=== PATIENT | female | born 1975 | race African-American/Black ===

== ENCOUNTER → 2018-02-11 18:44 | Observation (INO) ==
[2018-02-11 17:21] LABS: Bilirubin,Urine Negative (Negative); Blood,Urine Negative (Negative); Clarity,Urine Cloudy (Clear); Color,Urine Yellow (Yellow); Glucose,Urine (UA) 500 mg/dL (Normal); Ketones,Urine Negative (Negative); Leukocyte Esterase,Urine Negative (Negative); Nitrite,Urine Negative (Negative); Protein,Urine 30 mg/dL (Neg-Trace); Specific Gravity,Urine 1.027 (1.010-1.025); Urobilinogen,Urine Normal (Normal)
[2018-02-11 17:22] LABS: Bacteria,Urine Moderate per hpf (None-Few); Hyaline Casts,Urine None Seen per lpf (None-Few); Squamous Epithelial Cell,Urine Many per lpf (None-Few)
[2018-02-11 17:33] LABS: Uric Acid Crystals,Urine Present
[2018-02-11 17:48] LABS: Amphetamine Screen,Urine Negative ng/mL (Cutoff=1000); Barbiturate Screen,Urine Negative ng/mL (Cutoff=200); Benzodiazepines Screen,Urine Negative ng/mL (Cutoff=200); Cannabinoid Screen,Urine Negative ng/mL (Cutoff = 50); Cocaine Screen,Urine Negative ng/mL (Cutoff= 300); Opiate Screen,Urine Negative ng/mL (Cutoff=300); Phencyclidine Screen,Urine Negative ng/mL (Cutoff=25)
--- NOTE | 2018-02-11 18:41 | OB/GYN Progress Note ---
Date of Encounter: 02/11/18 Time of Encounter: 18:39 - Assessment and Plan (1) 33 weeks gestation of Current Visit: Yes Status: Acute (2) Fall Current Visit: Yes Status: Acute No abdominal pain or discomfort. Reactive tracing. Okay to discharge home [address] Craig. Qualifiers: Encounter type: initial encounter Qualified Code(s): W19.XXXA - Unspecified fall, initial encounter (3) Class B gestational diabetes mellitus (GDM) Current Visit: Yes Status: Chronic Discussed with patient concerns over running out of insulin and MD cancelling appointment. Asked patient if she could get to [facility] appointment we could get her an appointment and pt states "you can't do that they have tried", pt combative when discussing ability to get to earlier appointment if it could be made. Reviewed records and it looks like sent in 3 refills on 12/21 rx. Pt states pharmacy has no record of this rx ever being sent and therefore I would not be able to fill it. Discussed with Dr. Craig I sent in one month refill of Novolin and Novolog to [facility] pharmacy based on Dr. Quiroz 12/21 note dosing, this way patient will not run out over the weekend. I told patient I was sending in her rx and she said that she was unhappy with the management of her insulin and she was going to have her SO take her to [facility] for management. Discussed with patient I was sending her in a refill, but this only upset her and she insisted on leaving. Told patient the refill would be at her pharmacy for her to picket labor union. Medication sent via telephone encounter to [facility] in [place]. (4) Decreased movement during in third trimester, antepartum Current Visit: Yes Status: Resolved NST reactive. Qualifiers: Fetus number: single or unspecified fetus Qualified Code(s): O36.8130 - Decreased movements, third trimester, not applicable or unspecified Subjective - Subjective Interval history: 33+0 weeks presents to triage following reported fall at 1415. Pt states she was standing up and felt dizzy and fell. Pt is known diabetic on insulin. Pt states her glucose was 198 at noon, but did not check after fall. Pt states fell and hit side of abdomen. Pt denies contractions, vaginal bleeding or leaking of fluid. Pt states she has not felt baby move since NST in MD office today, but has anterior placenta and does not feel him move at times. Denies abdominal pain or discomfort. Pt states she is very concerned over insulin and that the kiosk sales representative cancelled her appointment and she will be out of insulin by Wednesday. Antepartum ROS: no loss of fluid, no vaginal bleeding, no movement normal , no contractions Objective - Vital Signs Vital Signs: Intake and Output 02/11/18 02/11/18 02/11/18 07:59 15:59 23:59 Other: Weight 155.129 kg Patient Weight 02/11/18 23:59 Weight 155.129 kg - Exam FHR: auscultation normal FHR comments: Baseline 135 Abdomen: Present: soft (no pain with palpation ), gravid - Labs Labs: Abnormal lab results Urine Clarity Cloudy (Clear) A 02/11/18 17:00 Ur Specific [place] 1.027 (1.010-1.025) H 02/11/18 17:00 Urine Protein 30 mg/dL (Neg-Trace) H 02/11/18 17:00 Urine Glucose (UA) 500 mg/dL (Normal) H 02/11/18 17:00 Urine Microscopic RBC 5-15 per hpf (0-3) H 02/11/18 17:00 Urine Microscopic WBC 5-15 per hpf (0-3) H 02/11/18 17:00 Ur Squamous Epith Cells Many per lpf (None-Few) H 02/11/18 17:00 Urine Bacteria Moderate per hpf (None-Few) H 02/11/18 17:00
== END | disposition home or self-care (01) ==
LOC: 1NENULAB
PROVIDERS: ADMIT Advanced Practice Midwife; ATTEND Advanced Practice Midwife

== ENCOUNTER 2018-03-18 06:07 | Inpatient (IN) ==
--- NOTE | 2018-03-18 06:35 | Anesthesia Evaluation PreOp ---
Date of Encounter: 03/18/18 Time of Encounter: 06:30 - Past History Planned Operation: Repeat Cardiac History: Denies any Significant Hx Pulmonary History: Denies Any Significant HX NURSE DISCHARGE History: Denies Any Significant HX Other Medical History: Diabetes Type II (Gestational on Insulin), Other (Morbid Obesity) Anesthesia History: No Prior Anesthetic Complications : Yes Alcohol Use: none Drug use: none, other Medications and Allergies Albuterol Sulfate Pack 2 puff IN Q4-6H PRN #1 units 03/21/15 [Rx] Montelukast [Singulair] 10 mg PO DAILY 12/07/15 [History] Ferrous Sulfate 325 mg PO BID 12/27/15 [History] Tablet 1 tab PO DAILY 12/27/15 [History] Pulmicort Flexhaler 180mcg 2 puff IN Q4HR 12/27/15 [History] Insulin LISPRO [Humalog] 20 unit SQ WMHS 01/15/16 [History] Insulin NPH 30 unit SQ HS 01/15/16 [History] Albuterol Sulfate 2.5 mg IH Q4H PRN #15 vial.neb 12/11/16 [Rx] Budesonide [Pulmicort Flexhaler 180mcg] 2 puff IH BID #1 aer.pow.ba 12/11/16 [Rx ] 3 Allergy/AdvReac Type Severity Reaction Status Date / Time bacitracin [From Polysporin] Allergy Rash Verified 12/11/16 06:13 polymyxin B [From Polysporin] Allergy Rash Verified 12/11/16 06:13 - Meds/Allergy Pre-op Review Medications Reviewed: Yes Allergies Reviewed: Yes Beta Blockers on Current Med List: No Anesthesia Results - Labs Laboratory Tests 12/27/15 12/24/17 03/17/18 18:47 10:04 13:30 WBC 12.4 H Hgb 12.1 Hct 37.2 Plt Count 176 PT 11.0 INR 1.0 APTT 25.7 L Sodium 135 L Potassium 3.9 BUN 10 Creatinine 0.52 L Anesthesia Exam Height: 5'11 Weight: 350 lbs NPO (# of Hours): MN Pain Scale: 0 - HEENT Pupil (Motor): Pupils equal, EOMI Mallampati: II Teeth: Normal Oral Opening: Greater than 3 - NURSE DISCHARGE LOC: Oriented NURSE DISCHARGE Motor: Normal RUE, Normal LUE, Normal RLE, Normal LLE, Normal Face NURSE DISCHARGE Sensory: Normal: RUE, LUE, RLE, LLE, Face - Cardiac Rhythm: Regular Murmur: None JVD: No Carotid Bruit: No - Pulmonary Breath Sounds: bilateral Clear Respiratory Effort: Symmetrical Anesthesia Assess/Plan ASA Score: 3 (Morbid Obesity Gestational DM) Modified [place] Scale for Level of Consciousness: Cooperative, oriented, and tranquil Anesthetic Plan: Regional Monitoring Plan: Standard Monitors Recovery Plan: PACU (Discussed SAB, possible GA, agrees to proceed)
[2018-03-18] MEDS ORDERED: Ringers Solution, Lactated 1,000 ML ONE ×2 (06:52→07:53)
[2018-03-18] MEDS ORDERED: *HR* Morphine Sulfate/PF 10 MG/10 ML AMPUL ONE (07:33)
[2018-03-18] MEDS ORDERED: *HR* FentaNYL (PF) 100 MCG/2 ML VIAL ONE (07:33)
[2018-03-18] MEDS ORDERED: Metoclopramide 10 MG/2 ML VIAL IVP ONE (07:36)
[2018-03-18] MEDS ORDERED: CeFAZolin Syr 3,000MG/30 ML 3,000 MG/30 ML SYRINGE IVPB ONE (07:36)
[2018-03-18] MEDS ORDERED: Famotidine 20 MG/2 ML VIAL IVP ONE (07:36)
[2018-03-18] MEDS ORDERED: EPHEDrine 50 MG/ML VIAL ONE (07:38)
[2018-03-18] MEDS ORDERED: Naloxone 0.4 MG/ML INJ IVP PRN ×2 (07:38→09:48)
[2018-03-18] MEDS ORDERED: Famotidine 20 MG/2 ML VIAL IVP PRN (07:38)
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
[2018-03-18] MEDS ORDERED: 0.9 % Sodium Chloride 1,000 ML IVC SCH (07:45)
[2018-03-18 07:52] LABS: Basophils % 0.2 %; Eosinophils # 0.1 K/mcL (0.0-0.6); Eosinophils % 0.8 %; Hematocrit 34.7 % (35.3-44.9); Immature Granulocytes % 0.7 % (0-4); Lymphocytes % 20.3 %; Mean Corpuscular HGB Conc 34.6 g/dL (31.6-35.5); Mean Corpuscular Hemoglobin 31.3 pg (28.0-33.3); Mean Corpuscular Volume 90.4 fL (83.0-100.0); Mean Platelet Volume 11.4 fL (9.4-12.4); Monocytes # 0.4 K/mcL (0.0-1.3); Monocytes % 4.5 %; Neutrophils # 7.3 K/mcL (1.6-8.9); Platelet Count 177 K/mcL (140-400); Red Blood Count 3.84 M/mcL (3.82-4.97); Segmented Neutrophils % 73.5 %
[2018-03-18] MEDS ORDERED: Ketorolac 30 MG/ML VIAL ONE (08:55)
[2018-03-18] MEDS ORDERED: Ondansetron 4 MG/2 ML VIAL ONE (08:55)
[2018-03-18] MEDS ORDERED: Dexamethasone 4 MG/ML VIAL ONE (08:55)
--- NOTE | 2018-03-18 09:09 | Anesthesia Procedures ---
Date of Encounter: 03/18/18 Time of Encounter: 08:27 Procedures: Anesthesia - Epidural/Spinal Patient ID/Chart reviewed: Yes Patient examined: Yes OB Eval: Gestational age: 38 OB Eval: : 6 OB Eval: Hx Para: 5 OB Eval: Contractions: Non-stressed pattern Consent Obtained: Yes Site Prep: Aseptic Technique, Sterile prep and drape, Povidone-Iodine 1% Patient position: upright Amount of Local Anesthetic used: 3 Interspace Used: L4-L5 Loss of Resistance (SHARATH): No Blood: No CSF: Yes Paresthesia: No Procedure: bupivicain 0.5% 2.3ml duramorph 0.3mg fentanyl 12mcg Vitals + FHT's: stable throughout see nursing record
[2018-03-18] MEDS ORDERED: *HR* OxyCODONE/APAP 5/325 TABLET PO PRN (09:10)
[2018-03-18] MEDS ORDERED: *HR* Promethazine 25 MG/ML VIAL IVP PRN (09:10)
[2018-03-18] MEDS ORDERED: Ondansetron 4 MG/2 ML VIAL IVP PRN ×2 (09:10→09:48)
[2018-03-18] MEDS ORDERED: *HR* Morphine 2 MG/ML SYRINGE IVP PRN (09:10)
[2018-03-18] MEDS ORDERED: *HR* Meperidine 25 MG/ML SYRINGE IVP PRN (09:10)
[2018-03-18] MEDS ORDERED: Ondansetron 4 MG/2 ML VIAL IVP ONE (09:10)
[2018-03-18] MEDS ORDERED: Acetaminophen IV 1,000 MG/100 ML INFUS..BTL IVPB ONE (09:10)
[2018-03-18] MEDS ORDERED: Rho Immune Globulin 1,500 UNIT SYRINGE IM ONE (09:48)
[2018-03-18] MEDS ORDERED: Simethicone 80 MG TAB.CHEW PO PRN (09:48)
[2018-03-18] MEDS ORDERED: Measles/Mumps/Rubella Vacc 0.5 ML VIAL SQ ONE (09:48)
[2018-03-18] MEDS ORDERED: Sennosides 8.6 MG TABLET PO PRN (09:48)
[2018-03-18] MEDS ORDERED: Metoclopramide 10 MG/2 ML VIAL IVP PRN (09:48)
--- NOTE | 2018-03-18 09:55 | OB/GYN Procedure Note ---
Section - Date of procedure: 03/18/18 Preop diagnosis: desires repeat , desires sterilization, other ( Increased BMI, poorly controlled insulin requiring diabetes) Post-op diagnosis: same Procedure: section, repeat low transverse, bilateral tubal ligation Surgeon: Oleksandr Cornell Blood Loss: 500 Was there an addictions counselor assistant present: No Anesthesia Type: Spinal section complications: none Disposition: L&D Recovery Room Specimens: Placenta - Infant (s) Infant A Delivery Date: 03/18/18 Infant Delivery Time: 08:53 Presentation: vertex Position: OA Gender: Male Viability: Viable Pounds: 8 Ounces: 3 at 1 minute: 9 at 5 minutes: 9 Shoulder Dystocia: not encountered Specimens collected: cord blood Placenta: spontaneous Cord: 3 umbilical vessels - Narrative Narrative: Patient's a 42-year-old female at 38 weeks gestation with history of prior section presents for repeat section. Patient's she has been complicated by morbid obesity, poorly controlled insulin requiring diabetes, asthma. Management has been difficult because she is not Follow-up appointments with endocrinology. Edema or [facility] diabetes clinic and her blood sugars have been poorly controlled. She oftentimes does not take her insulin or follow her diet. She did not bring her blood sugar recording taken. Because of this have discussed case with my partners in my ACCESS CLERK practice and they agree unanimously that delivery at 38 weeks' gestation as indicated because of poorly controlled diabetes and difficulty in monitoring patient because of body habitus. Patient is aware operative risks of section as well as tubal ligation desires procedure be performed. She signed appropriate consent. Description procedure: Patient was taken operating room where spinal anesthesia was administered. She was prepped draped in usual sterile fashion. Scalpel was used to make incision through prior incision well above the pannus. This was sharply taken down the fascia which was incised midline. Fascial incision was extended bilaterally. Rectus muscles were divided and peritoneum was entered bluntly. There were adhesions twins omentum and the anterior abdominal wall these were taken down. Scalpel was used to make a transverse uterine incision this was extended bluntly bilaterally. Membranes were ruptured clear fluid and infant was delivered from vertex presentation. Cord was clamped cut and was handed nurse personnel who were in attendance. weight is 78 lbs. 3 oz. Apgars 9 at 1 minute and 9 at 5 minutes. Placenta was delivered manually without difficulty. Membranes were somewhat adherent down low and lower uterine segment but I did remove all membranes. Uterus closed 0 Vicryl running lock stitch second imbricating layer was placed with the first obtain hemostasis. Approximate 4-5 similar segment of each fallopian tube was double ligated with 0 plain catgut suture. Irrigation was performed hemostasis was ensured. Fascia was closed oh loop PDS. Deep subcutaneous tissue was closed with 0 chromic suture. Skin edges reapproximated with 4-0 Vicryl. All sponge instrument counts are correct andreea dressing was applied patient was taken recovery in good condition..
[2018-03-18] MEDS ORDERED: Oxytocin 20 units/ LR 1000 mL 20 UNIT/1,000 ML BAG IVC SCH (10:00)
[2018-03-18] MEDS ORDERED: *HR* Dextrose 50 % in Water (Syg) 50 ML SYRINGE IVP PRN (10:04)
[2018-03-18] MEDS ORDERED: Dextrose Gel 15 GM/37.5 ML TUBE PO PRN ×2 (10:04)
[2018-03-18] MEDS ORDERED: D5% in Water 1,000 ML IVC PRN (10:04)
[2018-03-18] MEDS: Insulin LISPRO 300 UNITS/3 ML VIAL SQ SCH ×2 (14:06→17:06)
[2018-03-18] MEDS ORDERED: 0.9 % Sodium Chloride 1,000 ML IVC ONE (18:48)
[2018-03-18] MEDS ORDERED: Insulin LISPRO 300 UNITS/3 ML VIAL SQ SCH (21:00)
[2018-03-19] MEDS ORDERED: Albuterol 2.5 MG/3 ML NEBULIZER IH ONE (04:32)
[2018-03-19] MEDS: *HR* OxyCODONE/APAP 5/325 TABLET PO PRN ×3 (07:13→22:48)
[2018-03-19 07:19] LABS: Basophils % 0.1 %; Eosinophils # 0.1 K/mcL (0.0-0.6); Eosinophils % 0.7 %; Hematocrit 30.1 % (35.3-44.9); Immature Granulocytes % 0.5 % (0-4); Lymphocytes # 1.1 K/mcL (0.6-4.6); Lymphocytes % 15.1 %; Mean Corpuscular HGB Conc 33.2 g/dL (31.6-35.5); Mean Corpuscular Hemoglobin 30.6 pg (28.0-33.3); Mean Platelet Volume 11.4 fL (9.4-12.4); Monocytes # 0.4 K/mcL (0.0-1.3); Neutrophils # 5.9 K/mcL (1.6-8.9); Platelet Count 139 K/mcL (140-400); Red Blood Count 3.27 M/mcL (3.82-4.97); Red Cell Distribution Width 14.2 % (11.5-14.5); Segmented Neutrophils % 78.6 %
[2018-03-19] MEDS: Insulin LISPRO 300 UNITS/3 ML VIAL SQ SCH (08:08)
[2018-03-19] MEDS: Prenatal Vit/FA 1 EACH TABLET PO SCH (09:49)
[2018-03-19] MEDS: Ibuprofen 600 MG TABLET PO PRN (18:12)
--- NOTE | 2018-03-19 22:53 | OB/GYN Progress Note ---
Date of Encounter: 03/19/18 Time of Encounter: 08:00 - Assessment and Plan (1) 38 weeks gestation of Current Visit: Yes Status: Acute Pt with complicated by obesity and insulin requiring diabetes. As per POPPY she has not kept good recordings of her blood sugars and often refuses to follow diet or take insulin. Because of her BMI monitoring of well being is compromised and b/c of risks associated with poorly controlled diabetes and increased risk of IUFD, delivery at 38 weeks has been advised by me and my partners in my supply requirements officer practice concur with this care plan. Pt is aware of risks associated with prematurity and requests delivery. She is aware of surgical risks and consents for repeat c-sec and BPS. 03/19/18 POD # 1- Pt doing well POD # 1. Regular appetite, ambulating and voiding. Good pain control. Appropriate lochia. (2) Gestational diabetes mellitus Current Visit: Yes Status: Acute Pt on insulin with poor control 03/19/18- Pt on SSI coverage. Qualifiers: Gestational diabetes mellitus control: insulin-controlled Trimester: third trimester Qualified Code(s): O24.414 - Gestational diabetes mellitus in , insulin controlled (3) Asthma affecting in third trimester Current Visit: Yes Status: Acute Stable at this time - Using bedside inhaler, had one breathing treatment. (4) Antibiotics administered prior to section Current Visit: Yes Status: Acute (5) Obesity affecting in third trimester Current Visit: Yes Status: Acute Subjective - Subjective Principal diagnosis: POD #1 s/p c-sec and BPS, gestational diabetes Interval history: Pt doing well, good pain control. Patient reports: appetite normal, voiding normally, pain well controlled [place]: doing well Objective - Vital Signs Latest vital signs: Vital Signs Temp Pulse Resp BP Pulse Ox 03/19/18 20:03 17 98 03/19/18 19:30 97.9 F 95 16 134/73 97 03/19/18 09:55 18 99 03/19/18 07:40 98.2 F 89 18 121/64 100 03/19/18 04:46 18 99 03/19/18 04:00 98.3 F 85 16 105/59 100 03/18/18 23:40 98.7 F 87 16 125/62 97 Intake and Output 03/19/18 03/19/18 03/19/18 07:59 15:59 23:59 Intake Total 400 / 400 Output Total 700 / 700 3000 / 3000 1999 / 1999 Balance -700 / -700 -3000 / -3000 -1600 / -1600 Intake: Oral 400 / 400 Output: Urine 3000 / 3000 1999 / 2000 Catheter 700 / 700 Other: Meal Dinner Percent of Meal Consumed 55% Weight 161.3 kg Blood Glucose* 196 104 148 Patient Weight 03/19/18 23:59 Weight 161.3 kg - Exam Lungs: bilateral: normal Chest: Normal S1, Normal S2 Extremities: Present: normal Abdomen: Present: gravid Incision: Present: normal, other (FUENTES in place and functioning), dressed Uterus: Present: normal - Labs Labs: Laboratory Results - last 24 hr 03/19/18 03/19/18 03/19/18 06:56 07:38 11:29 WBC 7.5 RBC 3.27 L Hgb 10.0 L D Hct 30.1 L MCV 92.0 MCH 30.6 MCHC 33.2 RDW 14.2 Plt Count 139 L MPV 11.4 Immature Gran % 0.5 Seg Neutrophils % 78.6 Lymphocytes % 15.1 Monocytes % 5.0 Eosinophils % 0.7 Basophils % 0.1 Neutrophils # 5.9 Lymphocytes # 1.1 Monocytes # 0.4 Eosinophils # 0.1 Basophils # 0.0 POC Glucose 196 H 104 H 03/19/18 03/19/18 16:40 21:04 WBC RBC Hgb Hct MCV MCH MCHC RDW Plt Count MPV Immature Gran % Seg Neutrophils % Lymphocytes % Monocytes % Eosinophils % Basophils % Neutrophils # Lymphocytes # Monocytes # Eosinophils # Basophils # POC Glucose 117 H 148 H
[2018-03-20] MEDS: Ibuprofen 600 MG TABLET PO PRN ×2 (00:26→06:18)
[2018-03-20] MEDS: *HR* OxyCODONE/APAP 5/325 TABLET PO PRN ×2 (03:00→08:38)
--- NOTE | 2018-03-20 08:03 | Discharge Summary ---
Date of Encounter: 03/20/18 Time of Encounter: 08:02 - Discharge Diagnosis (1) 38 weeks gestation of Priority: Secondary Status: Acute (2) Gestational diabetes mellitus Priority: Secondary Status: Acute Qualifiers: Gestational diabetes mellitus control: insulin-controlled Trimester: third trimester Qualified Code(s): O24.414 - Gestational diabetes mellitus in , insulin controlled (3) Asthma affecting in third trimester Priority: Secondary Status: Acute (4) Antibiotics administered prior to section Priority: Secondary Status: Acute (5) Obesity affecting in third trimester Priority: Secondary Status: Acute (6) Delivered by section Priority: Primary Status: Acute Comments: Doing well, meets criteria for d/c and desires d/c. Will D/C home. - Discharge Medications Prescriptions: Ibuprofen [Motrin] 600 mg PO Q6HR PRN #40 tablet PRN Reason: Cramping OxyCODONE/APAP 5/325 [Percocet 5/325 MG] 1 each PO Q6HR PRN 7 Days #28 tablet PRN Reason: Moderate pain 4-6 Home Medications: Tablet 1 tab PO DAILY 12/27/15 [History] Ibuprofen [Motrin] 600 mg PO Q6HR PRN #40 tablet 03/20/18 [Rx] OxyCODONE/APAP 5/325 [Percocet 5/325 MG] 1 each PO Q6HR PRN 7 Days #28 tablet [Rx] Allergies/Adverse Reactions: 3 Allergy/AdvReac Type Severity Reaction Status Date / Time bacitracin [From Polysporin] Allergy Rash Verified 12/11/16 06:13 polymyxin B [From Polysporin] Allergy Rash Verified 12/11/16 06:13 Data Procedures and tests throughout hospitalization: Laboratory Tests 03/18/18 03/18/18 03/18/18 07:00 16:58 20:44 WBC 9.9 RBC 3.84 Hgb 12.0 Hct 34.7 L MCV 90.4 MCH 31.3 MCHC 34.6 RDW 14.0 Plt Count 177 MPV 11.4 Immature Gran % 0.7 Seg Neutrophils % 73.5 Lymphocytes % 20.3 Monocytes % 4.5 Eosinophils % 0.8 Basophils % 0.2 Neutrophils # 7.3 Lymphocytes # 2.0 Monocytes # 0.4 Eosinophils # 0.1 Basophils # 0.0 POC Glucose 165 H 175 H 03/19/18 03/19/18 03/19/18 06:56 07:38 11:29 WBC 7.5 RBC 3.27 L Hgb 10.0 L D Hct 30.1 L MCV 92.0 MCH 30.6 MCHC 33.2 RDW 14.2 Plt Count 139 L MPV 11.4 Immature Gran % 0.5 Seg Neutrophils % 78.6 Lymphocytes % 15.1 Monocytes % 5.0 Eosinophils % 0.7 Basophils % 0.1 Neutrophils # 5.9 Lymphocytes # 1.1 Monocytes # 0.4 Eosinophils # 0.1 Basophils # 0.0 POC Glucose 196 H 104 H 03/19/18 03/19/18 16:40 21:04 WBC RBC Hgb Hct MCV MCH MCHC RDW Plt Count MPV Immature Gran % Seg Neutrophils % Lymphocytes % Monocytes % Eosinophils % Basophils % Neutrophils # Lymphocytes # Monocytes # Eosinophils # Basophils # POC Glucose 117 H 148 H Labs on day of discharge: Labs from last 24 hours 03/19/18 03/19/18 03/19/18 21:04 16:40 11:29 POC Glucose 148 H 117 H 104 H - Impressions Doing well, ambulating. Good pain control. + Flatus. Date of admission: 03/18/18 06:07 Primary care physician: PCP NONE Consults: 03/18/18 07:40 Consult to Principal Bioinformatics Specialist (W&C) [CONS] Routine Reason For Exam: Reason for SW Consult: known - Patient Status Disposition: Home, Self-Care Condition: Good Functional capacity at discharge: independent ambulation Overall status at discharge: patient is progressing back to baseline - Discharge Instructions Follow Up With: Oleksandr Haas MD [Partnered Physician] - - Diet and Activity Activity: increase activity as tolerated Diet: diabetic diet Hospital Course DIRECTOR TELEVISION Time Attestation: Total time spent providing and/or coordinating discharge services: Exam - Constitutional Vitals: Temp Pulse Resp BP Pulse Ox 97.9 F 95 17 134/73 98 03/19/18 19:30 03/19/18 19:30 03/19/18 20:03 03/19/18 19:30 03/19/18 20:03 General appearance IM: A&O X 3 - Respiratory Respiratory exam: Present: CTAB - Cardiovascular Cardiovascular exam IM: Present: RRR - GI/Abdominal GI/Abdominal exam IM: normal bowel sounds Incision: normal, other (FUENTES dressing on) - Neurological Exam Neurological exam: oriented X3 - VTE Documentation of Mechanical Device: Intermittent pneumatic compression device
[2018-03-20] MEDS ORDERED: MOM Conc 10 ML UD.LIQ PO ONE (08:06)
[2018-03-20 08:32] VITALS: BP 127/75
[2018-03-20] MEDS: Prenatal Vit/FA 1 EACH TABLET PO SCH (08:38)
== END 2018-03-20 08:45 | disposition home or self-care (01) | DRG 765 ==
LOC: 1NENULAB 06:07 → 1NENUOBS 12:49
PROVIDERS: ADMIT Obstetrics & Gynecology; ATTEND Obstetrics & Gynecology